=== PATIENT | female | born 1965 | race Caucasian/White ===

== ENCOUNTER 2017-02-27 04:22 | Emergency (ER) | payer MEDICARE, MEDICAID ==
[~2017-02-27] VITALS: Ht 170.2 cm; Wt 59.5 kg
[2017-02-27] MEDS ORDERED: SODIUM CHLORIDE 0.9% 1,000 ML IV ONE (05:02)
[2017-02-27] MEDS ORDERED: ALBUTEROL/IPRATROPIUM 2.5MG/0.5MG, 3 ML ONE (05:25)
[2017-02-27] MEDS ORDERED: ALBUTEROL/IPRATROPIUM 2.5MG/0.5MG, 3 ML NPPB ONE (05:30)
[2017-02-27] MEDS ORDERED: SODIUM CHLORIDE 0.9% 1,000ML IVBOLUS ONE (05:30)
[2017-02-27 06:18] LABS: ASPARTATE AMINO TRANSFERASE 61 U/L (15-37); BLOOD UREA NITROGEN 12 mg/dL (7-18)
[2017-02-27 06:23] LABS: IS PT STATUS REG ER OR PRE ER? YES
[2017-02-27 08:08] VITALS: BP 114/77
== END 2017-02-27 08:10 | disposition home or self-care (01) ==
LOC: ED 05:32
DX: T78.40XA Allergy, unspecified, initial encounter (principal); J18.0 Bronchopneumonia, unspecified organism; J44.9 Chronic obstructive pulmonary disease, unspecified; Y92.9 Unspecified place or not applicable
CPT/HCPCS: 36415; 71010; 80053; 83605; 83690; 84145; 84484; 85025; 87040; 93005; 94640; 96360; 96361; 99285; J7030; J7512; J7620